=== PATIENT | female | born 1965 | race Caucasian/White ===

== ENCOUNTER 2020-12-29 15:38 | Emergency (ER) | payer OTHER, BC ==
[~2020-12-29] VITALS: Ht 160 cm; Wt 74.8 kg
[2020-12-30] MEDS ORDERED: DICLOFENAC SODI75 MG PO (01:55)
== END 2020-12-30 06:17 | disposition home or self-care (01) ==
LOC: ER 15:38
DX: M25.551 Pain in right hip (principal); M79.651 Pain in right thigh; F41.8 Other specified anxiety disorders

== ENCOUNTER 2022-04-10 20:36 | Emergency (ER) | payer BC ==
[~2022-04-10] VITALS: Ht 175.3 cm; Wt 86.6 kg
[~2022-04-10 20:36] MED LIST: DICLOFENAC SODI75 MG PO
[2022-04-11] MEDS ORDERED: NIFEDIPINE ER60 MG PO (04:04)
== END 2022-04-11 | disposition home or self-care (01) ==
LOC: ER
DX: I10 Essential (primary) hypertension (principal)